=== PATIENT | female | born 1945 | race Caucasian/White ===

== ENCOUNTER 2016-10-21 19:06 | Inpatient (IN) | payer OTHER ==
[~2016-10-21] VITALS: Ht 172.7 cm; Wt 90.7 kg
--- NOTE | ~2016-10-21 | EKG ---
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
--- NOTE | ~2016-10-21 | HC ---
[facility] [place] [address] CONSULTATION Name: FRANKIE WALLACE Room #: 442-P ADM IN M.R.#: [id number] Admission: 10/21/16 Attend Phys: Carlo Varghese Discharge: Date of : 45 Report #: [id number] THIS REPORT FOR: //name// CC: Carlo Varghese Frankie Rell Desirmen HISTORY OF PRESENT ILLNESS: The patient is a 71-year-old female known to myself who was admitted yesterday afternoon after she presented to [facility], became what they felt was inebriated and called the , she was dysarthric having difficulty speaking and have left facial droop, associated with some headache. stated it was left facial droop. She has a history of some TIAs in the past. Her coronary status has been stable. She has a drug-eluting stent to her PDA placed in 2002 and also a stent to her circ OM. She has been stable from that perspective. We had a nuclear stress test done in January of last year, which showed no ischemia, preserved LV function. She has been compliant with her medications, which have been aspirin, Bystolic 5, glyburide 5, ibuprofen, Lantus, Livalo 4, metformin 1000, Onglyza 2.5, quinapril 40, Synthroid and Welchol. PAST MEDICAL HISTORY: Positive for coronary artery disease, appendectomy, , hysterectomy, hypertension, hypercholesterolemia, diabetes, venous insufficiency. Dr. Faria performed the venous ablation and also had of the right posterior calf. SOCIAL HISTORY: , some caffeine and alcohol, rare alcohol, caffeine daily, no tobacco. Three children. She is , retired. FAMILY HISTORY: Did have a sibling that had of heart failure at 54. ALLERGIES: No known drug allergies. LABORATORY DATA: Sodium 141, potassium 4.0, creatinine 1.0. Troponin is negative. Cholesterol total 111, triglycerides 177, LDL 44, HDL 32. H and H 14 and 42, white cell count 9.5. Platelets 333. CT of the head done yesterday shows underlying atrophy white matter ischemic changes without any hemorrhage or infarct, but (now has developed worst headache of her life). PHYSICAL EXAMINATION: GENERAL: She is nauseated with complaining of intense left-sided head pain. VITAL SIGNS: Blood pressure 120/60, pulse 70s. HEENT: Eyes reveal xanthelasmas. Pharynx is clear. She does have some photophobia. NECK: Shows preserved upstrokes without JVD or bruits. LUNGS: Clear. CARDIOVASCULAR: Regular rate and rhythm, S1, S2. ABDOMEN: Soft. No HSM or abdominal bruit. [facility] [address] [place] [address] CONSULTATION Name: FRANKIE WALLACE Room #: 442-P ADM IN M.R.#: [id number] Admission: 10/21/16 Attend Phys: Carlo Varghese Discharge: Date of : 45 Report #: [id number] EXTREMITIES: Reveal trace edema, mild venous stasis changes. NEUROLOGIC: Nonfocal. SKIN: Warm and dry without xanthoma or ulcer. MUSCULOSKELETAL: No gross joint deformity, some valgus deformity of the knees. ASSESSMENT: 1. Cerebrovascular, TIA with resolved dysarthria and left facial droop. 2. Severe headache which is recurrent (worst headache of her life). 3. Coronary artery disease with prior coronary stents as stated above. 4. Hypertension. 5. Hypercholesterolemia. 6. Diabetes. RECOMMENDATIONS AND PLAN: MRI apparently has been delayed here this morning. Neurology has seen, EKG is okay. EKG shows nonspecific changes. Neurology has seen, but now she has developed worst headache of her life, will proceed for stat noncontrast CT of her head to repeat this looking for potential for a bleed here and then obviously MRI to follow. Cardiovascular status appears to be stable and is hemodynamically, I will obtain an echocardiogram Doppler, but this is not, obviously there is always a remote chance of this could have been atrial fibrillation and a potential thrombotic event here, but currently is in sinus rhythm with a bundle branch block, we have not seen any evidence of atrial fibrillation on the monitor. We will hold on antiplatelet, anticoagulation until we were able to rule out that there is not an intracranial bleed. We will follow with you. Thank you for asking me to assist care of this patient. By: 0932 1210 Dominic Garza MD, FACC /nt
--- NOTE | ~2016-10-21 | H ---
[facility] [place] [address] HISTORY AND PHYSICAL Name: FRANKIE WALLACE Room #: 442-P ADM IN M.R.#: [id number] Admission: 10/21/16 Attend Phys: Alvaro Steiner MD Discharge: Date of : 45 Report #: [id number] THIS REPORT FOR: //name// CC: Alvaro Harris ATTENDING PHYSICIAN: Dr. Steiner. PRIMARY CARE PHYSICIAN: Dr. Frankie Zacarias. CHIEF COMPLAINT: Right-sided facial droop with dysarthria and confusion. HISTORY OF PRESENT ILLNESS: The patient is a 71-year-old female with a history of TIAs. She was shopping at [employer] and had sudden onset of difficulty speaking. She was trying to check out and when she went to talk to the [facility], she said the words in her head, but they came out completely different, she was also noted to have prior blood right-sided facial droop. She was given some aspirin and her was called and he brought her straight into the ER about 17 minutes after this onset of symptoms. She also noticed some problems with her right hand trying to grasp things and said it was weak. She also felt dizzy. She had an odd sensation in her neck and left side of her head, said there was numbness and tingling sensation that started in her neck went up into the left side of her face, but there was also some pain behind her left eye. She did have some nausea with this. She has had prior TIAs twice in which she also had some right hand weakness and speech problems, her symptoms completely resolved in the ER, therefore she was not deemed a candidate for TPA. She continues to be neurologically intact and has not had any recurrence of the symptoms since. She denied any associated chest pain with this. PAST MEDICAL HISTORY: Psoriasis, TIAs, diabetes, hypertension, coronary artery disease, hypothyroidism. PAST SURGICAL HISTORY: , multiple D and C, hysterectomy, appendectomy, foot surgery, coronary stent x 2, cholecystectomy, and a knee meniscus surgery. ALLERGIES: MORPHINE CAUSES NAUSEA AND VOMITING. HOME MEDICATIONS: Nebivolol 10 mg daily, quinapril 40 mg daily, aspirin 325 mg daily, metformin 1000 mg in the morning and 1500 mg at night, Onglyza 5 mg daily and Lantus insulin 34-36 units at bedtime, glyburide 5 mg daily and levothyroxine 75 mcg daily. SOCIAL HISTORY: The patient lives at home with her spouse and her son, denies any tobacco, alcohol or drug use. She ambulates independently. FAMILY HISTORY: Negative for any strokes. [address] [address] HISTORY AND PHYSICAL Name: FRANKIE WALLACE Room #: 442-P [facility] IN M.R.#: [id number] Admission: 10/21/16 Attend Phys: Alvaro Steiner MD Discharge: Date of : 45 Report #: [id number] REVIEW OF SYSTEMS: Twelve point review of systems was reviewed with the patient, otherwise negative unless stated in the HPI. PHYSICAL EXAMINATION: GENERAL: The patient is an alert female in no acute distress. VITAL SIGNS: Temperature is 35.9, heart rate , respirations 16, blood pressure is 185/99, oxygen is 98% on room air. HEENT: She does have a cross eyes, but EOMs are intact and pupils are equal and reactive, sclerae are nonicteric. Oral mucosa is pink and moist. NECK: Supple, no JVD noted. CARDIOVASCULAR: Normal S1, S2. No murmurs, rubs or gallops. RESPIRATORY: Breath sounds are clear bilaterally, diminished in both bases. Breathing is nonlabored. ABDOMEN: Obese, soft, nontender, nondistended with positive bowel sounds. VASCULAR: 1+ bilateral ankle edema. Pedal pulses are 2+. No calf tenderness. NEUROLOGIC: The patient is alert and oriented x 3. Speech is clear. No facial asymmetry. She is moving all extremities equally, muscle strength is 5/5 in all 4 extremities. LABORATORY DATA AND DIAGNOSTIC: WBC is 9.5, hemoglobin 14.4, platelets 333. INR 1.0. Sodium 141, potassium 4.0, BUN 19, creatinine 1.0. Glucose is 98. LFTs are within normal limits. Troponins negative. Alcohol level is less than 10. CT of the head without contrast showed atrophy and mild white matter ischemic changes without hemorrhage or other acute infarct. CT angio of the head and neck showed no focal stenosis or vessel cut off. No aneurysm seen and was apparently prominent developmental venous anomaly as an incidental finding in the right cerebral hemisphere adjacent to the first ventricle. There is no intracranial hemorrhage or perfusion abnormality seen and on the neck there is common carotid arteries are tortuous but patent with mild plaquing involving the left carotid bulb. There is no dissection or stenosis in the internal carotid arteries. ASSESSMENT AND PLAN: 1. Transient ischemic attack versus cerebrovascular accident, her initial symptoms have resolved. Neurology was consulted for further recommendations and did recommend an MRI and that echocardiogram today. Continue aspirin daily. 2. Diabetes type 2. Blood sugars are stable, continue home insulin regimen and oral hypoglycemics, we do need to hold metformin because of the CTA, add sliding scale insulin. 3. Hypertension. Blood pressure is elevated. We will hold her quinapril and Bystolic and offer permissive hypertension until her MRI is back. 4. History of heart disease. Troponin is negative. EKG shows no ischemic changes. She does have chronic left bundle branch block. 5. Hypothyroidism. Check TSH level. Continue Synthroid. 6. Deep venous thrombosis prophylaxis, place sequential compression devices. [facility] [address] [place] [address] HISTORY AND PHYSICAL Name: FRANKIE WALLACE Room #: 442-P ADM IN M.R.#: [id number] Admission: 10/21/16 Attend Phys: Alvaro Steiner MD Discharge: Date of : 45 Report #: [id number] We will continue to follow the patient closely throughout the hospitalization and make changes based on clinical status. By: 0553 0715 MARYELLEN Adam /misbah
[~2016-10-21 19:06] MED LIST: ACCUPRIL PO; ACTOS 30 MG TAB30 M1 PO; ACTOS PO; ASPIRIN325 PO; BYSTOLIC10 MG PO; GLUCOPHAGE1000 MG PO; GLYBURIDE 5 MG T5 MG PO; IBUPROFEN200 M2 PO; LIVALO2 MG PO; LOVASTAT40 PO; METFORMIN PO; SYNTHROID25 MCG PO; VALIUM2 MG PO
[2016-10-21 19:09] VITALS: BP 185/99
[2016-10-21] MEDS ORDERED: HYDROCHLOROTHIA25 M2 PO (19:20)
[2016-10-21] MEDS ORDERED: LEVOTHYROXIN0.075 MG PO (19:20)
[2016-10-21] MEDS ORDERED: QUINAPRIL HCL40 MG PO (19:21)
[2016-10-21] MEDS ORDERED: LANTUS SOL100 UNIT/1 SQ (19:21)
[2016-10-21] MEDS ORDERED: METFORMIN HCL1000 MG PO (19:21)
[2016-10-21] MEDS ORDERED: ONGLYZA5 MG PO (19:22)
[2016-10-21 19:30] LABS: ABSOLUTE NEUTROPHILS 5.8 thou/uL (1.4-8.2); BASOPHILS 0.7 % (0.0-2.0); EOSINOPHILS 3.7 % (0.0-3.0); HEMATOCRIT 42.9 % (37.0-47.0); HEMOGLOBIN 14.4 gm/dL (12.0-15.0); LYMPHOCYTES 26.6 % (24.0-44.0); MCH 29.3 pg (26.0-34.0); MCHC 33.6 g/dL (28.0-37.0); MCV 87.1 fL (80.0-100.0); MONOCYTES 8.5 % (1.0-8.0); PLATELET COUNT 333 thou/uL (150-400); POLYS 60.5 % (36.0-66.0); RBC 4.93 mil/uL (4.20-5.00); RDW 12.9 % (10.5-14.5); WBC 9.5 thou/uL (4.0-11.0)
[2016-10-21 19:31] LABS: MANUAL DIFF NO
[2016-10-21 19:36] LABS: POC CA IONIZED 4.6 mg/dL (4.5-5.3); POC CREATININE 0.8 mg/dL (0.6-1.3); POC HEMOGLOBIN 14.6 g/dL (12.0-15.0); POC POTASSIUM 3.9 mmol/L (3.5-5.1)
[2016-10-21 19:42] LABS: ANION GAP 12 mmol/L (7-16); BUN 19 mg/dL (7-18); CALCIUM 9.5 mg/dL (8.5-10.1); CHLORIDE 103 mmol/L (98-107); CO2 26 mmol/L (21-32); GLUCOSE 98 mg/dL (74-106); SODIUM 141 mmol/L (136-145)
[2016-10-21 19:47] LABS: ALBUMIN 4.1 g/dL (3.4-5.0); ALKALINE PHOSPHATASE 77 U/L (46-116); SGOT 26 U/L (15-37); SGPT 33 U/L (30-65); TOTAL BILIRUBIN 0.4 mg/dL (<0.1-1.0); TOTAL PROTEIN 7.7 g/dL (6.4-8.2); TROPONIN-I < 0.04 ng/mL (<0.04-0.07)
[2016-10-21 19:49] LABS: APTT 25.2 Seconds (24.5-32.8); PROTIME 10.3 Seconds (9.3-11.4)
[2016-10-21 21:28] VITALS: BP 155/72
[2016-10-21 21:44] VITALS: BP 144/80
[2016-10-21] MEDS ORDERED: GLYBURIDE 5 MG T5 M1 PO (22:11)
[2016-10-21 23:29] VITALS: BP 146/73
[2016-10-22 04:37] VITALS: BP 100/51
[2016-10-22 08:00] VITALS: BP 116/59
[2016-10-22 08:25] LABS: CHOLESTEROL 111 mg/dL (<200); HDL CHOLESTEROL 32 mg/dL (>40); LDL CHOLESTEROL 44 mg/dL (<100); TC:HDL 3.5 Ratio (Not establshd); TRIGLYCERIDE 177 mg/dL (<150); VLDL 35 mg/dL (<40)
[2016-10-22 12:00] VITALS: BP 161/72
[2016-10-22 16:00] VITALS: BP 134/55
[2016-10-22 19:50] VITALS: BP 123/49
[2016-10-22 20:21] VITALS: BP 123/49
[2016-10-23 03:45] VITALS: BP 138/70
[2016-10-23 08:00] VITALS: BP 124/59; BP 138/70
[2016-10-23 12:00] VITALS: BP 130/59
[2016-10-23] MEDS ORDERED: CLOPIDOGREL75 MG PO (12:26)
[2016-10-23 12:39] VITALS: BP 130/59
== END 2016-10-23 14:50 | disposition short-term general hospital (02) | DRG 69 ==
LOC: ER 19:06 → EROBS 20:39 → 4S 20:39
PROVIDERS: Emergency Medicine; Nurse Practitioner Acute Care
DX: G45.9 Transient cerebral ischemic attack, unspecified (principal); I10 Essential (primary) hypertension; E78.00 Pure hypercholesterolemia, unspecified; E11.9 Type 2 diabetes mellitus without complications; I25.10 Atherosclerotic heart disease of native coronary artery without angina pectoris; E78.5 Hyperlipidemia, unspecified; I44.7 Left bundle-branch block, unspecified; F40.240 Claustrophobia; E03.9 Hypothyroidism, unspecified; R51 Headache; E66.9 Obesity, unspecified; Z68.30 Body mass index [BMI] 30.0-30.9, adult; Z79.84 Long term (current) use of oral hypoglycemic drugs; Z79.4 Long term (current) use of insulin; Z79.899 Other long term (current) drug therapy; Z90.49 Acquired absence of other specified parts of digestive tract; Z90.710 Acquired absence of both cervix and uterus; Z95.5 Presence of coronary angioplasty implant and graft; Z82.49 Family history of ischemic heart disease and other diseases of the circulatory system
CPT/HCPCS: 10100

== ENCOUNTER 2016-10-27 12:36 | Emergency (ER) | payer OTHER ==
[~2016-10-27] VITALS: Ht 175.3 cm; Wt 124.7 kg
--- NOTE | ~2016-10-27 | EKG ---
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
[~2016-10-27 12:36] MED LIST changes: +CLOPIDOGREL75 MG PO; +GLYBURIDE 5 MG T5 M1 PO; +HYDROCHLOROTHIA25 M2 PO; +LANTUS SOL100 UNIT/1 SQ; +LEVOTHYROXIN0.075 MG PO; +METFORMIN HCL1000 MG PO; +ONGLYZA5 MG PO; +QUINAPRIL HCL40 MG PO
[2016-10-27 13:06] LABS: ABSOLUTE NEUTROPHILS 9.8 thou/uL (1.4-8.2); BASOPHILS 0.6 % (0.0-2.0); EOSINOPHILS 1.8 % (0.0-3.0); HEMATOCRIT 39.1 % (37.0-47.0); HEMOGLOBIN 13.1 gm/dL (12.0-15.0); LYMPHOCYTES 11.8 % (24.0-44.0); MCH 29.1 pg (26.0-34.0); MCHC 33.5 g/dL (28.0-37.0); MCV 86.8 fL (80.0-100.0); MONOCYTES 7.6 % (1.0-8.0); PLATELET COUNT 321 thou/uL (150-400); POLYS 78.2 % (36.0-66.0); RBC 4.51 mil/uL (4.20-5.00); RDW 12.7 % (10.5-14.5); WBC 12.6 thou/uL (4.0-11.0)
[2016-10-27 13:07] LABS: MANUAL DIFF NO
[2016-10-27 13:13] LABS: ANION GAP 11 mmol/L (7-16); BUN 15 mg/dL (7-18); CALCIUM 8.6 mg/dL (8.5-10.1); CHLORIDE 102 mmol/L (98-107); CO2 24 mmol/L (21-32); CREATININE 1.1 mg/dL (0.6-1.0); GLUCOSE 164 mg/dL (74-106); POTASSIUM 3.8 mmol/L (3.5-5.1); SODIUM 137 mmol/L (136-145)
[2016-10-27 13:20] LABS: ALBUMIN 3.5 g/dL (3.4-5.0); ALKALINE PHOSPHATASE 66 U/L (46-116); DIRECT BILIRUBIN < 0.1 mg/dL (<0.1-0.3); SGOT 22 U/L (15-37); SGPT 27 U/L (30-65); TOTAL BILIRUBIN 0.3 mg/dL (<0.1-1.0); TROPONIN-I < 0.04 ng/mL (<0.04-0.07)
[2016-10-27 13:59] LABS: URINE BLOOD NEGATIVE (Negative); URINE COLOR YELLOW; URINE GLUCOSE-RANDOM* NEGATIVE (Negative); URINE KETONES NEGATIVE (Negative); URINE LEUKOCYTES-REFLEX 2+ (Negative); URINE PROTEIN (DIPSTICK) TRACE (Negative); URINE SPECIFIC GRAVITY >= 1.030 (1.003-1.035); URINE UROBILINOGEN 0.2 E.U./dl (0.2-1.0)
[2016-10-27 14:01] LABS: URINE BILIRUBIN NEGATIVE (Negative)
[2016-10-27 14:06] LABS: SQUAMOUS 0-3 Few /LPF (0-3)
[2016-10-27 14:07] LABS: CASTS None Seen /LPF (None Seen); CRYSTALS None Seen /LPF (None Seen); URINE RBC None Seen /HPF (0-2)
[2016-10-27] MEDS ORDERED: BACTRIM DS TAB1 EACH PO (14:32)
== END 2016-10-27 15:03 | disposition home or self-care (01) ==
LOC: ER 12:36
PROVIDERS: Emergency Medicine
DX: I95.9 Hypotension, unspecified (principal); N39.0 Urinary tract infection, site not specified; E11.9 Type 2 diabetes mellitus without complications; Z98.890 Other specified postprocedural states; Z90.710 Acquired absence of both cervix and uterus; Z95.5 Presence of coronary angioplasty implant and graft; Z86.73 Personal history of transient ischemic attack (TIA), and cerebral infarction without residual deficits; Z87.891 Personal history of nicotine dependence; Z79.4 Long term (current) use of insulin

== ENCOUNTER 2017-02-22 12:49 | Inpatient (IN) | payer OTHER ==
[~2017-02-22] VITALS: Ht 175.3 cm; Wt 95.7 kg
--- NOTE | ~2017-02-22 | HC ---
[facility] [place] [address] CONSULTATION Name: WALLACEFRANKIE HADDAD Room #: 303-P ADM IN M.R.#: [id number] Admission: 02/22/17 Attend Phys: Donnie Robledo DO Discharge: Date of : 45 Report #: [id number] THIS REPORT FOR: //name// CC: Donnie Zacarias REASON FOR CONSULTATION: I was asked to evaluate concerning right diabetic foot infection. HISTORY OF PRESENT ILLNESS: The patient is a 71-year-old underlying with diabetes and peripheral neuropathy. Hospitalized with increased right foot pain associated with fever and chills. She noticed some increased pain in the plantar aspect of her first metatarsal head associated with a callus. This was debrided last week, subsequently developed ongoing symptoms about 48 hours. Initially, she was placed on cephalexin and then switched the doxycycline without benefit. She continues to have pain. Her fever has improved. She was on IV antibiotic therapy at this point in time. ALLERGIES: CLOPIDOGREL. MEDICATIONS: As noted on her MAR including vancomycin and Zosyn. PAST MEDICAL HISTORY: Hammertoe deformity to the right first toe, status post surgical intervention and pin placement. This has been revised several times. She does have residual pins in place. TIA, urinary tract infection, previous Staph aureus, and infection of the right foot. FAMILY HISTORY: Noncontributory. SOCIAL HISTORY: Nonsmoker, no significant alcohol intake. REVIEW OF SYSTEMS: Denies any cough, sputum, nausea, vomiting, diarrhea, dysuria, or frequency. PHYSICAL EXAMINATION: VITAL SIGNS: Afebrile and hemodynamically stable. GENERAL: She is alert and cooperative. No acute distress. Moderately obese. HEENT: Unremarkable. NECK: Supple. LUNGS: Clear. HEART: Regular. ABDOMEN: Soft and nontender. Pulses in the right lower extremity, 2+ in the femoral, 3+ in the popliteal, 2+ in the dorsalis pedis and 1+ posterior tib. She had a callus with skin break over the right first metatarsal head. Surrounding erythema, which extended mostly up the medial and dorsal surface of her first metatarsal head region. Erythema did extend up to the proximal leg. Exquisitely tender over the first metatarsal head. She had well-healed [address] [address] CONSULTATION Name: FRANKIE WALLACE Room #: 303-P ADM IN M.R.#: [id number] Admission: 02/22/17 Attend Phys: Donnie Robledo DO Discharge: Date of : 45 Report #: [id number] incisions to the dorsum of her first toe. Decreased sensation in her toes. LABORATORY STUDIES: Sodium 142, potassium 3.2, bicarbonate 27, and creatinine 1. Hemoglobin 11, white count 7.8, and platelet count 270,000. Blood culture is negative to date. CRP 83. X-ray of the foot, first metatarsal postop changes with a fixation screw in place. X-ray showed no lucency around the fixation screw. IMPRESSION: A 71-year-old with diabetic foot infection on the right focused over her first metatarsal head region. Need to evaluate for soft tissue fluid collection or subtle osteomyelitis that would require surgical intervention. X-ray shows that the screw seems to be well seated. We will plan to continue IV antibiotic therapy pending cultures. <ELECTRONICALLY SIGNED> By: Elia Garcia MD 02/23/17 1143 1037 1105 Elia Garcia MD /nt
--- NOTE | ~2017-02-22 | HC ---
[facility] [place] [address] CONSULTATION Name: WALLACEFRANKIE HADDAD Room #: 303-P ADM IN M.R.#: [id number] Admission: 02/22/17 Attend Phys: Donnie Robledo DO Discharge: Date of : 45 Report #: [id number] THIS REPORT FOR: //name// CC: Donnie Zacarias HISTORY OF PRESENT ILLNESS: The patient is a pleasant 71-year-old female who was admitted to [facility] to the Emergency Department yesterday with complaints of right foot pain and swelling. The patient reports that she saw her doctor on 02/14 for right foot pain and swelling. At that point, he started her on Keflex. She was on this for about a week, then on 02/21 was seen in an urgent care office where she was also started on doxycycline. She presented to the Emergency Department at [facility] yesterday with complaints of worsening pain, swelling and fever. The patient has a history of osteomyelitis in the right foot that began about 5 years ago. She had another infection episode approximately 3 years ago. The patient also has a history of a bunionectomy x 2 on the right foot with the most recent surgery being approximately 5 years ago. The patient is an insulin-dependent diabetic who lives with her and normally ambulates without assistance. PAST MEDICAL HISTORY: Significant for diabetes, hypothyroid, history of osteomyelitis of the right foot. PAST SURGICAL HISTORY: Significant for bunionectomy x 2 on the right foot. MEDICATIONS: Includes Lantus, metformin, levothyroxine, saxagliptin hydrochloride, glyburide, nebivolol, prasugrel. ALLERGIES: CLOPIDOGREL CAUSES A RASH. PHYSICAL EXAMINATION: VITAL SIGNS: Temperature 36.7 degrees Celsius, blood pressure 148/69, pulse rate 80 BPM, respiratory rate 17. GENERAL: The patient is a well-developed, well-nourished female in no acute distress. Her daughter is at a bedside today. EXTREMITIES: Right lower extremity, mild erythema noted, most prominently in the mid foot and fading up into the lower leg. Edema noted throughout the foot with pitting edema noted in the lower leg. Sensation is diminished bilaterally in the feet; however, the patient has exquisite tenderness to palpation of the medial aspect of the mid and forefoot. There is a second callus on the medial plantar aspect over the MTP. IMAGING: Three views of the right foot performed on 02/22/2017 show degenerative and surgical change. Soft tissue swelling without distinct bone destruction. MRI is more accurate for the ____ osteomyelitis and marrow edema. IMPRESSION: [address] [address] CONSULTATION Name: FRANKIE WALLACE Room #: 303-P [facility] IN M.R.#: [id number] Admission: 02/22/17 Attend Phys: Donnie Robledo DO Discharge: Date of : 45 Report #: [id number] 1. Right foot cellulitis, possible osteomyelitis. 2. Diabetes, insulin-dependent. PLAN: Discussed the plan with the patient and her daughter who was at her bedside today. We will obtain an MRI for further evaluation of possible osteomyelitis of the right foot. Pending the MRI results, we discussed that if this does show an osteomyelitis, we may need to discuss options including amputation. This is not the patient's first bout of osteomyelitis in this foot and we discussed that these do not always resolve with antibiotic treatment alone. We will continue IV antibiotics per Infectious Disease and medicine team and await results of the MRI. <ELECTRONICALLY SIGNED> By: STACY Wiggins 02/25/17 1544 1623 1847 STACY Wiggins /nt
--- NOTE | ~2017-02-22 | O ---
[facility] [place] [address] OPERATIVE REPORT Name: FRANKIE WALLACE Room #: 303-P ADM IN M.R.#: [id number] Admission: 02/22/17 Attend Phys: Donnie Robledo DO Discharge: Date of : 45 Report #: [id number] THIS REPORT FOR: //name// CC: Donnie Jose Rell DATE OF SERVICE: 02/26/2017 PREOPERATIVE DIAGNOSIS: Right forefoot infection. POSTOPERATIVE DIAGNOSIS: Right forefoot infection. PROCEDURE: Incision and drainage, right forefoot infection/abscess. SURGEON: Neno Jaime MD INDICATIONS: This is a 71-year-old female who has had problems with heavy callus over the plantar aspect of the right forefoot and has had infections in the past. Recently, her fire observer was trying to debride the callus and noted some increased swelling. He tried to aspirate the area without success. Subsequently, the foot became more red and inflamed. Clinical findings and MRI study suggests an area of fluid collection deep to the callus over the plantar aspect of the forefoot overlying the sesamoid. This seems most consistent with a local abscess formation. We have elected to go ahead with surgical debridement. DESCRIPTION OF PROCEDURE: The patient was taken to the operating room where she is placed under brief general anesthetic. The right lower extremity was meticulously prepped and draped. An Esmarch bandage was used to exsanguinate the right foot and left at the mid leg as a gentle tourniquet. A longitudinal skin incision was made over the medial border of the foot just plantar to the first MP joint. There is a very heavy callus beneath this and the incision was positioned so that I could debride the area deep to the callus and superficial to the sesamoid bones. The incision was extended through subcutaneous tissues and a small fluid filled space was entered. This is cloudy serous fluid. There is no obvious purulence but I suspect this is infected. Specimen was sent for culture. About 2 mL of fluid was removed. This pocket was then aggressively irrigated with antibiotic solution using about 1000 mL. The area was gently probed to make sure there were no septations or pockets, which might further debris and infection. Once the area had been thoroughly irrigated and debrided, a few inches of iodoform quarter-inch range gauze packing were gently tucked into the wound to promote further drainage. A soft dressing was then [address] [address] OPERATIVE REPORT Name: FRANKIE WALLACE Room #: 303-P [facility] IN .R.#: [id number] Admission: 02/22/17 Attend Phys: Donnie Robledo DO Discharge: Date of : 45 Report #: [id number] applied. The patient was awakened and returned to the recovery room in good condition. <ELECTRONICALLY SIGNED> By: Neno Jaime MD 02/27/17 1147 1415 1454 Neno Jaime MD /misbah
--- NOTE | ~2017-02-22 | EKG ---
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 : 1945 Requested By: Elia Garcia Order Number: [id number] MD: Trent Miller Measurements Intervals [place] Rate: 71 P: 39 [place]: 185 QRS: 84 QRSD: 141 T: 244 QT: 436 QTc: 474 Interpretive Statements Sinus rhythm LVH with secondary repolarization abnormality Anterior Q waves, possibly due to LVH Compared to ECG 10/27/2016 12:42:04 Left ventricular hypertrophy now present Early repolarization now present Q waves now present Left bundle-branch block no longer present Electronically Signed On 03-01-2017 22:10:27 CDT by Trent Miller [email or web address] <ELECTRONICALLY SIGNED> By: Trent Miller MD 03/01/17 2210 1239 1239 Trent Miller MD /EPI
[~2017-02-22 12:49] MED LIST changes: +BACTRIM DS TAB1 EACH PO
[2017-02-22 13:59] VITALS: BP 147/66
[2017-02-22] MEDS ORDERED: EFFIENT10 MG PO (14:05)
[2017-02-22] MEDS ORDERED: DOXYCYCLINE 10100 MG PO (14:06)
[2017-02-22 15:00] LABS: ABSOLUTE NEUTROPHILS 6.9 thou/uL (1.4-8.2); BASOPHILS 0.8 % (0.0-2.0); EOSINOPHILS 3.4 % (0.0-3.0); HEMATOCRIT 36.4 % (37.0-47.0); HEMOGLOBIN 12.2 gm/dL (12.0-15.0); LYMPHOCYTES 16.8 % (24.0-44.0); MCHC 33.6 g/dL (28.0-37.0); MCV 89.2 fL (80.0-100.0); MONOCYTES 8.2 % (1.0-8.0); PLATELET COUNT 292 thou/uL (150-400); POLYS 70.8 % (36.0-66.0); RBC 4.08 mil/uL (4.20-5.00); RDW 13.5 % (10.5-14.5); WBC 9.8 thou/uL (4.0-11.0)
[2017-02-22 15:07] LABS: CALCIUM 8.6 mg/dL (8.5-10.1); MANUAL DIFF NO; POTASSIUM 3.7 mmol/L (3.5-5.1)
[2017-02-22 16:05] VITALS: BP 126/61
[2017-02-22 16:14] VITALS: BP 126/61
[2017-02-22 20:00] VITALS: BP 146/64
[2017-02-23] VITALS: BP 152/72
[2017-02-23 04:00] VITALS: BP 128/44
[2017-02-23 05:35] LABS: BASOPHILS 0.8 % (0.0-2.0); EOSINOPHILS 4.2 % (0.0-3.0); HEMATOCRIT 32.7 % (37.0-47.0); HEMOGLOBIN 11.1 gm/dL (12.0-15.0); LYMPHOCYTES 22.5 % (24.0-44.0); MCHC 33.9 g/dL (28.0-37.0); MCV 88.6 fL (80.0-100.0); MONOCYTES 8.9 % (1.0-8.0); PLATELET COUNT 270 thou/uL (150-400); POLYS 63.6 % (36.0-66.0); RBC 3.69 mil/uL (4.20-5.00); RDW 13.1 % (10.5-14.5); WBC 7.8 thou/uL (4.0-11.0)
[2017-02-23 05:44] LABS: MANUAL DIFF NO
[2017-02-23 05:47] LABS: CALCIUM 8.1 mg/dL (8.5-10.1); POTASSIUM 3.2 mmol/L (3.5-5.1)
[2017-02-23 08:00] VITALS: BP 126/59
[2017-02-23 16:00] VITALS: BP 148/69
[2017-02-23 19:45] VITALS: BP 158/71
[2017-02-24 00:37] LABS: ABSOLUTE NEUTROPHILS 4.3 thou/uL (1.4-8.2); BASOPHILS 1.2 % (0.0-2.0); EOSINOPHILS 4.5 % (0.0-3.0); HEMATOCRIT 34.4 % (37.0-47.0); HEMOGLOBIN 11.4 gm/dL (12.0-15.0); LYMPHOCYTES 26.1 % (24.0-44.0); MCH 29.9 pg (26.0-34.0); MCHC 33.3 g/dL (28.0-37.0); MCV 89.9 fL (80.0-100.0); MONOCYTES 9.2 % (1.0-8.0); PLATELET COUNT 320 thou/uL (150-400); RBC 3.83 mil/uL (4.20-5.00); RDW 12.9 % (10.5-14.5); WBC 7.4 thou/uL (4.0-11.0)
[2017-02-24 00:45] LABS: CALCIUM 8.4 mg/dL (8.5-10.1); MANUAL DIFF NO; POTASSIUM 3.9 mmol/L (3.5-5.1)
[2017-02-24 03:10] VITALS: BP 150/78
[2017-02-24 08:11] VITALS: BP 141/66
[2017-02-24 16:07] VITALS: BP 160/66
[2017-02-24 19:08] VITALS: BP 144/60
[2017-02-25 03:38] VITALS: BP 145/58
[2017-02-25 08:05] VITALS: BP 154/64
[2017-02-25 16:50] VITALS: BP 106/61
[2017-02-25 19:21] VITALS: BP 133/61
[2017-02-26 03:48] VITALS: BP 158/78
[2017-02-26 09:10] VITALS: BP 143/50
[2017-02-26 13:15] VITALS: BP 144/73
[2017-02-26 15:07] VITALS: BP 155/66
[2017-02-26 16:55] VITALS: BP 158/73
[2017-02-26 20:00] VITALS: BP 143/61
[2017-02-27] VITALS: BP 138/48
[2017-02-27 04:00] VITALS: BP 143/68
[2017-02-27 08:30] VITALS: BP 134/68
[2017-02-27] MEDS ORDERED: LINEZOLID600 MG PO (12:01)
[2017-02-27] MEDS ORDERED: CIPRO500 MG PO (12:01)
[2017-02-27 15:19] VITALS: BP 143/57
[2017-02-27 19:41] VITALS: BP 119/52
[2017-02-28 03:40] VITALS: BP 119/46
[2017-02-28 07:42] VITALS: BP 124/60
[2017-02-28] MEDS ORDERED: CIPRO500 MG PO (08:18)
[2017-02-28] MEDS ORDERED: LINEZOLID600 MG PO (08:18)
[2017-02-28] MEDS ORDERED: TRAMADOL 50 MG50 MG PO (08:19)
[2017-02-28 09:42] VITALS: BP 124/60
[2017-02-28] MEDS ORDERED: ZOFRAN ODT4 MG PO (10:35)
== END 2017-02-28 11:55 | disposition home or self-care (01) | DRG 501 ==
LOC: ER 12:49 → EROBS 15:49 → 3N 15:49 → EROBS 16:36 → 3N 18:46
PROVIDERS: Emergency Medicine; Family Medicine
PROC: 0J9Q0ZZ Drainage of Right Foot Subcutaneous Tissue and Fascia, Open Approach (ICD-10-PCS; principal; 2017-02-26)
DX: M71.171 Other infective bursitis, right ankle and foot (principal); L03.115 Cellulitis of right lower limb; L02.611 Cutaneous abscess of right foot; I10 Essential (primary) hypertension; E03.9 Hypothyroidism, unspecified; E11.9 Type 2 diabetes mellitus without complications; Z88.1 Allergy status to other antibiotic agents; Z88.5 Allergy status to narcotic agent; Z90.710 Acquired absence of both cervix and uterus; Z95.5 Presence of coronary angioplasty implant and graft; Z86.73 Personal history of transient ischemic attack (TIA), and cerebral infarction without residual deficits; Z79.4 Long term (current) use of insulin; Z88.8 Allergy status to other drugs, medicaments and biological substances; Z87.891 Personal history of nicotine dependence; Z87.440 Personal history of urinary (tract) infections
CPT/HCPCS: 10795; 50010; 50101; 50386; 57091; 62110; 62900; 70005

== ENCOUNTER 2017-06-16 11:24 | Emergency (ER) | payer OTHER ==
[~2017-06-16] VITALS: Ht 175.3 cm; Wt 90.7 kg
[~2017-06-16 11:24] MED LIST changes: +CIPRO500 MG PO; +DOXYCYCLINE 10100 MG PO; +EFFIENT10 MG PO; +LINEZOLID600 MG PO; +TRAMADOL 50 MG50 MG PO; +ZOFRAN ODT4 MG PO
[2017-06-16] MEDS ORDERED: HYDROCODONE-AP1 EAC6 PO (13:06)
== END 2017-06-16 15:13 | disposition home or self-care (01) ==
LOC: ER 11:24
DX: S52.502A Unspecified fracture of the lower end of left radius, initial encounter for closed fracture (principal); S82.002A Unspecified fracture of left patella, initial encounter for closed fracture; E11.9 Type 2 diabetes mellitus without complications; I10 Essential (primary) hypertension; Z98.890 Other specified postprocedural states; Z90.710 Acquired absence of both cervix and uterus; Z86.73 Personal history of transient ischemic attack (TIA), and cerebral infarction without residual deficits; Z88.5 Allergy status to narcotic agent; Z88.2 Allergy status to sulfonamides; Z79.4 Long term (current) use of insulin; W01.0XXA Fall on same level from slipping, tripping and stumbling without subsequent striking against object, initial encounter; Y93.89 Activity, other specified; Y92.89 Other specified places as the place of occurrence of the external cause; Y99.8 Other external cause status

== ENCOUNTER 2017-06-17 17:07 | Emergency (ER) | payer OTHER ==
[~2017-06-17] VITALS: Ht 175.3 cm; Wt 90.7 kg
[~2017-06-17 17:07] MED LIST changes: +HYDROCODONE-AP1 EAC6 PO
== END 2017-06-17 19:39 | disposition home or self-care (01) ==
LOC: ER 17:07
DX: Z47.89 Encounter for other orthopedic aftercare (principal); E11.9 Type 2 diabetes mellitus without complications; I10 Essential (primary) hypertension; Z86.73 Personal history of transient ischemic attack (TIA), and cerebral infarction without residual deficits; Z79.4 Long term (current) use of insulin; Z88.2 Allergy status to sulfonamides; Z88.5 Allergy status to narcotic agent; Z88.8 Allergy status to other drugs, medicaments and biological substances

== ENCOUNTER → 2018-10-26 | Outpatient (CLI) | payer OTHER | LOC: CAT 11:42 | DX: Z13.6 Encounter for screening for cardiovascular disorders (principal); E78.00 Pure hypercholesterolemia, unspecified; I25.10 Atherosclerotic heart disease of native coronary artery without angina pectoris ==

== ENCOUNTER → 2019-08-11 | Outpatient (CLI) | payer OTHER | LOC: SJCVC 14:30 | DX: I44.7 Left bundle-branch block, unspecified (principal); R94.31 Abnormal electrocardiogram [ECG] [EKG]; I25.10 Atherosclerotic heart disease of native coronary artery without angina pectoris; E78.00 Pure hypercholesterolemia, unspecified; E11.51 Type 2 diabetes mellitus with diabetic peripheral angiopathy without gangrene; G45.9 Transient cerebral ischemic attack, unspecified; I87.2 Venous insufficiency (chronic) (peripheral); I10 Essential (primary) hypertension; Z90.49 Acquired absence of other specified parts of digestive tract; Z79.4 Long term (current) use of insulin; Z90.710 Acquired absence of both cervix and uterus ==

== ENCOUNTER → 2019-09-20 | Outpatient (CLI) | payer OTHER | LOC: SJCVCIMAG 08:21 | DX: I08.3 Combined rheumatic disorders of mitral, aortic and tricuspid valves (principal); I27.20 Pulmonary hypertension, unspecified; I44.7 Left bundle-branch block, unspecified; I25.10 Atherosclerotic heart disease of native coronary artery without angina pectoris; I10 Essential (primary) hypertension; R94.39 Abnormal result of other cardiovascular function study; Z98.61 Coronary angioplasty status; Z79.899 Other long term (current) drug therapy; Z88.8 Allergy status to other drugs, medicaments and biological substances ==

== ENCOUNTER → 2019-12-20 | Outpatient (CLI) | payer OTHER | LOC: SJCVCIMAG 06:58 | PROVIDERS: ATTEND Internal Medicine Cardiovascular Disease | DX: I87.2 Venous insufficiency (chronic) (peripheral) (principal); M79.671 Pain in right foot; I10 Essential (primary) hypertension; I25.10 Atherosclerotic heart disease of native coronary artery without angina pectoris; E78.00 Pure hypercholesterolemia, unspecified; E11.9 Type 2 diabetes mellitus without complications; Z79.4 Long term (current) use of insulin ==

== ENCOUNTER → 2019-12-22 | Outpatient (CLI) | payer OTHER | LOC: SJCVCIMAG 11:22 | DX: I70.203 Unspecified atherosclerosis of native arteries of extremities, bilateral legs (principal) ==

== ENCOUNTER → 2020-05-02 | Outpatient (CLI) | payer OTHER | LOC: SJCVC 14:05 | PROVIDERS: ATTEND Internal Medicine Cardiovascular Disease | DX: R94.31 Abnormal electrocardiogram [ECG] [EKG] (principal); I44.7 Left bundle-branch block, unspecified; I25.10 Atherosclerotic heart disease of native coronary artery without angina pectoris; I73.9 Peripheral vascular disease, unspecified; I10 Essential (primary) hypertension; E78.00 Pure hypercholesterolemia, unspecified; I87.2 Venous insufficiency (chronic) (peripheral); E11.9 Type 2 diabetes mellitus without complications; Z79.4 Long term (current) use of insulin; Z79.899 Other long term (current) drug therapy; Z86.73 Personal history of transient ischemic attack (TIA), and cerebral infarction without residual deficits ==

== ENCOUNTER → 2020-10-01 | Outpatient (CLI) | payer OTHER | LOC: HYPER 10:29 | PROVIDERS: ATTEND Emergency Medicine | DX: E11.621 Type 2 diabetes mellitus with foot ulcer (principal); I70.235 Atherosclerosis of native arteries of right leg with ulceration of other part of foot; L97.512 Non-pressure chronic ulcer of other part of right foot with fat layer exposed; I70.202 Unspecified atherosclerosis of native arteries of extremities, left leg; L84 Corns and callosities; L29.8 Other pruritus; R21 Rash and other nonspecific skin eruption; E11.51 Type 2 diabetes mellitus with diabetic peripheral angiopathy without gangrene; E11.22 Type 2 diabetes mellitus with diabetic chronic kidney disease; I12.9 Hypertensive chronic kidney disease with stage 1 through stage 4 chronic kidney disease, or unspecified chronic kidney disease; N18.9 Chronic kidney disease, unspecified; E11.40 Type 2 diabetes mellitus with diabetic neuropathy, unspecified; E78.00 Pure hypercholesterolemia, unspecified; I25.10 Atherosclerotic heart disease of native coronary artery without angina pectoris; I87.2 Venous insufficiency (chronic) (peripheral); I67.89 Other cerebrovascular disease; K21.9 Gastro-esophageal reflux disease without esophagitis; F41.9 Anxiety disorder, unspecified; Z79.4 Long term (current) use of insulin; Z90.49 Acquired absence of other specified parts of digestive tract; Z95.5 Presence of coronary angioplasty implant and graft; Z90.710 Acquired absence of both cervix and uterus ==

== ENCOUNTER → 2020-10-08 | Outpatient (CLI) | payer OTHER | LOC: HYPER 11:13 | PROVIDERS: ATTEND Emergency Medicine Emergency Medical Services | DX: E11.621 Type 2 diabetes mellitus with foot ulcer (principal); I70.235 Atherosclerosis of native arteries of right leg with ulceration of other part of foot; L97.512 Non-pressure chronic ulcer of other part of right foot with fat layer exposed; I70.202 Unspecified atherosclerosis of native arteries of extremities, left leg; L84 Corns and callosities; L29.8 Other pruritus; R21 Rash and other nonspecific skin eruption; E11.51 Type 2 diabetes mellitus with diabetic peripheral angiopathy without gangrene; E11.22 Type 2 diabetes mellitus with diabetic chronic kidney disease; I12.9 Hypertensive chronic kidney disease with stage 1 through stage 4 chronic kidney disease, or unspecified chronic kidney disease; N18.9 Chronic kidney disease, unspecified; E11.40 Type 2 diabetes mellitus with diabetic neuropathy, unspecified; E78.00 Pure hypercholesterolemia, unspecified; E66.9 Obesity, unspecified; I25.10 Atherosclerotic heart disease of native coronary artery without angina pectoris; I87.2 Venous insufficiency (chronic) (peripheral); I67.89 Other cerebrovascular disease; K21.9 Gastro-esophageal reflux disease without esophagitis; F41.9 Anxiety disorder, unspecified; Z79.4 Long term (current) use of insulin; Z90.49 Acquired absence of other specified parts of digestive tract; Z95.5 Presence of coronary angioplasty implant and graft; Z90.710 Acquired absence of both cervix and uterus; Z68.37 Body mass index [BMI] 37.0-37.9, adult ==

== ENCOUNTER → 2020-11-14 | Outpatient (CLI) | payer OTHER | LOC: SJCVCIMAG 07:51 | PROVIDERS: ATTEND Internal Medicine Cardiovascular Disease | DX: I65.23 Occlusion and stenosis of bilateral carotid arteries (principal); E04.1 Nontoxic single thyroid nodule; R94.31 Abnormal electrocardiogram [ECG] [EKG]; I44.7 Left bundle-branch block, unspecified; I25.10 Atherosclerotic heart disease of native coronary artery without angina pectoris; I10 Essential (primary) hypertension; E78.00 Pure hypercholesterolemia, unspecified; I87.2 Venous insufficiency (chronic) (peripheral); E11.51 Type 2 diabetes mellitus with diabetic peripheral angiopathy without gangrene; I73.9 Peripheral vascular disease, unspecified; Z90.49 Acquired absence of other specified parts of digestive tract; Z90.710 Acquired absence of both cervix and uterus; Z98.890 Other specified postprocedural states; Z88.8 Allergy status to other drugs, medicaments and biological substances; Z79.4 Long term (current) use of insulin; Z79.899 Other long term (current) drug therapy; Z82.49 Family history of ischemic heart disease and other diseases of the circulatory system ==

== ENCOUNTER → 2020-12-12 | Outpatient (CLI) | payer OTHER ==
[2020-12-12 10:35] LABS: INR 0.9; PROTIME 9.9 Seconds (9.3-11.4)
--- NOTE | 2020-12-21 13:50 | PATH ---
[facility] [place] [address] PATHOLOGY RPT PROCEDURE Name: FRANKIE WALLACE Room #: REG [facility].#: [id number] Admission: 12/12/20 Date of : 45 Discharge: Report #: [id number] Path Case #: [id number] Note LCA Accession Number: [id number] TESTS RESULT FLAG UNITS REF RANGE LAB Clinician Provided Cytology Information No. of containers..01 Other (Miscellaneous) Source: RIGHT THYROID DIAGNOSIS: RIGHT THYROID NEGATIVE FOR MALIGNANT EPITHELIAL CELLS. BETHESDA CATEGORY II. SPECIMEN CONSISTS OF ABUNDANT GROUPS OF FOLLICULAR CELLS, HEMOSIDERIN-LADEN MACROPHAGES, SCANT COLLOID AND BLOOD. THE PATTERN IS COMPATIBLE WITH ADENOMATOID NODULE. COLLOID IS PRESENT. RED BLOOD CELLS ARE PRESENT. THIS INTERPRETATION INCLUDES EVALUATION OF A CELL BLOCK. SCANT CELLULARITY. Comment: Specimen is scantly cellular with barely adequate follicular cells. 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 Pathologist ICD10: 02 E04.1 Signed out by: 02 Hazel Laurent MD, Pathologist NPI- [id number] Performed by: Lauren Urrutia, Wind Farm Designer ([facility]) Gross description: 08 18, CLEAR PINK, 2 F 2 AD /LCS 12/13/[address] [place] [address] FLAG LEGEND: L-Low Normal,H-High Normal,LL-Alert Low,HH-Alert High <-Panic Low,>-Panic High,A-Abnormal,AA-Critical Abnormal Performed at: 01 [facility] [address] [place] [address] Blaze Rivero MD, [address] [address] Hazel Laurent MD, Specimen Comment: A courtesy copy of this report has been sent to [phone], [address] [address] PATHOLOGY RPT PROCEDURE Name: FRANKIE WALLACE Room #: REG ELIZABETH Farrell#: [id number] Admission: 12/12/20 Date of : 45 Discharge: Report #: [id number] Path Case #: [id number] Specimen Comment: [id number] Specimen Comment: Report sent to / DR JUAREZ Specimen Comment: A duplicate report has been generated due to demographic updates. Performed at: [address], [place], [place] [id number] MD Blaze Rivero MD Phone: [phone]
== END | disposition home or self-care (01) ==
LOC: RAD 09:24 → LAB 09:26
PROVIDERS: ATTEND Otolaryngology Plastic Surgery within the Head & Neck
DX: E04.1 Nontoxic single thyroid nodule (principal); Z98.890 Other specified postprocedural states; Z79.899 Other long term (current) drug therapy; Z88.8 Allergy status to other drugs, medicaments and biological substances; Z88.2 Allergy status to sulfonamides; Z79.891 Long term (current) use of opiate analgesic

== ENCOUNTER → 2021-04-11 | Outpatient (CLI) | payer OTHER ==
[~2021-04-11] MED LIST changes: +BYSTOLIC 5 MG5 MG PO; +CLORAZEPATE D3.75 M1 PO; +EFFIENT5 MG PO; +JANUVIA100 MG PO; -LEVOTHYROXIN0.075 MG PO; +LEXAPRO5 MG PO; +LIVALO1 MG PO; +MAGNESIUM400 MG PO; +METFORMIN HCL500 MG PO; +NEURONTIN100 MG PO; +OMEPRAZOLE40 MG PO; +SYNTHROID75 MC1 PO; +WELCHOL 625 MG625 M1 PO
[2021-04-11 09:19] LABS: HEMOGLOBIN 12.5 gm/dL (12.0-15.0); MCH 30.1 pg (26.0-34.0); MCHC 32.8 g/dL (28.0-37.0); MCV 91.9 fL (80.0-100.0); RBC 4.14 mil/uL (4.20-5.00); RDW 13.2 % (10.5-14.5)
[2021-04-11 09:29] LABS: INR 0.94; PROTIME 10.3 Seconds (10.5-12.1)
[2021-04-11 09:35] LABS: ALBUMIN 3.4 g/dL (3.4-5.0); CREATININE 0.9 mg/dL (0.6-1.0); POTASSIUM 4.7 mmol/L (3.5-5.1)
[2021-04-11 09:49] LABS: URINE BILIRUBIN NEGATIVE (Negative); URINE BLOOD NEGATIVE (Negative); URINE CLARITY CLEAR; URINE COLOR YELLOW; URINE GLUCOSE-RANDOM* NEGATIVE (Negative); URINE KETONES TRACE (Negative); URINE NITRITE-REFLEX NEGATIVE (Negative); URINE PROTEIN (DIPSTICK) NEGATIVE (Negative); URINE UROBILINOGEN 0.2 E.U./dl (0.2-1.0)
[2021-04-11 09:50] LABS: URINE LEUKOCYTES-REFLEX 1+ (Negative)
[2021-04-11 10:31] LABS: SQUAMOUS 0-3 Few /LPF (0-3); URINE WBC-REFLEX 6-15 Few /HPF (0-5)
[2021-04-11 10:32] LABS: BACTERIA-REFLEX 1-9 Few /HPF (None Seen); CASTS None Seen /LPF (None Seen); CRYSTALS None Seen /LPF (None Seen); URINE RBC 1-2 Rare /HPF (NONE SEEN)
[2021-04-11 23:06] LABS: GLYCOHEMOGLOBIN (HGB A1C) 7.3 % (4.8-5.6)
== END ==
LOC: PAC 08:21
PROVIDERS: ATTEND Orthopaedic Surgery
DX: M17.11 Unilateral primary osteoarthritis, right knee (principal)

== ENCOUNTER 2021-04-17 12:29 | Observation (INO) | payer OTHER ==
[~2021-04-17] VITALS: Ht 172.7 cm; Wt 87.1 kg
[2021-04-17 13:30] VITALS: BP 169/77
[2021-04-17 16:30] VITALS: BP 135/52
--- NOTE | 2021-04-17 17:22 | NUR ---
ASSUMED PT CARE AT 1630 FROM PACU. PT IS ALERT & ORIENTED X4. PT HAS IV SITE ON R AC 20 GAUGE RUNNING D5 1/2 NS @100ML/HR. PT HAS COTY DRESSING FLORA WRAP, BILATERAL FARHAT HOSES KNEE HIGH, POLAR CARE AND SCD. PT IS ACCUCHECK ACHS. PT IS ON 2L NC 02 FOR COMFORT. FINISHED ADMISSION. PT AT THE BEDSIDE. PT ON THE BED EATING DINNER, BED ON THE LOWEST POSITION, SIDE RAILS UP, CALL LIGHT WITHIN REACH. WILL CONTINUE TO MONITOR PT. FOLLOW POC.
[2021-04-17 19:26] VITALS: BP 148/62
--- NOTE | 2021-04-18 02:52 | NUR ---
PT IS A/O X4 AND IS ON BED REST FOLLOWING PROCEDURE UNTIL EVALUATED BY PHYSICAL THERAPY. IS PLEASANT AND COOPERATIVE. VSS. AFEBRILE. HS BS ELEVATED. SCHEDULED INSULIN PROVIDED. HS SNACK PROVIDED. DRSG TO RIGHT KNEE IS C/D/I. POLAR PACK, SCD'S, AND TEDHOSE IN PLACE. FALL PRECAUTIONS IN PLACE, CALL LIGHT IS WITHIN REACH.
[2021-04-18 04:39] VITALS: BP 115/45
[2021-04-18 06:34] LABS: ABSOLUTE NEUTROPHILS 13.4 thou/uL (1.4-8.2); HEMATOCRIT 35.6 % (37.0-47.0); HEMOGLOBIN 11.3 gm/dL (12.0-15.0); LYMPHOCYTES 5.1 % (24.0-44.0); MCH 29.4 pg (26.0-34.0); MCHC 31.7 g/dL (28.0-37.0); MCV 92.6 fL (80.0-100.0); MONOCYTES 6.4 % (1.0-8.0); PLATELET COUNT 306 thou/uL (150-400); POLYS 88.5 % (36.0-66.0); RBC 3.85 mil/uL (4.20-5.00); RDW 13.7 % (10.5-14.5); WBC 15.2 thou/uL (4.0-11.0)
[2021-04-18 07:38] VITALS: BP 128/47
[2021-04-18 09:07] LABS: CALCIUM 7.9 mg/dL (8.5-10.1); CREATININE 1.2 mg/dL (0.6-1.0); MAGNESIUM 1.5 mg/dL (1.8-2.4); POTASSIUM 4.8 mmol/L (3.5-5.1)
--- NOTE | 2021-04-18 10:24 | NUR ---
ASSUMED PT CARE THIS AM. PT IS ALERT & ORIENTED X4. PT HAS IV SITE ON RAC RUNNING D5 1/2 NS. PT IS ACCUCHECK ACHS. PT HAS COTY DRESSING, FLORA WRAP, FARHAT HOSES KNEE HIGH BILATERALLY, POLAR CARE AND SCD. PHYSICAL THERAPY WAS WORKING WITH PATIENT THIS AM. GIVEN PAIN MEDICATION PRIOR WORKING WITH PHYSICAL THERAPY THIS AM. PT WAS AT THE BED. WILL CONTINUE TO MONITOR PT. FOLLOW POC.
--- NOTE | 2021-04-18 12:16 | NUR ---
INITIAL ASSESSMENT: SW reviewed chart and spoke with nursing and hospitalist. Pt was admitted from home. Pt is POD#1 right TKA. Pt may discharge home later today. SW notified that pt will need a roller walker for home. SW met with pt at bedside. Introduced role of SW. Pt is alert/orientated x 4. Pt reports she lives at home with her . Prior to admission, pt was independent with ADLs. No hx of services or post-acute placement. Pt's PCP is Dr. Rebeca Zacarias. SW discussed need for roller walker. Pt agreeable. No preference of [employer] company voiced. MARYSE notified [facility] liaison of need for walker, as pt may d/c home later today pending PM therapy session and ortho. Script for walker left on pt's chart. SW is following to assist as needed with discharge planning.
[2021-04-18 15:47] VITALS: BP 104/44
[2021-04-18 21:25] VITALS: BP 140/45
--- NOTE | 2021-04-19 00:56 | NUR ---
ASSESSMENT COMPLETED. R KNEE WITH COTY DRSG, AND POLAR LETICIA WHILE PT IS IN BED. SHE IS ALERT AND ORIENTED X 4.TEDS IN PLACE. SCDS TO LLE. AFEBRILE. DENIES N/V, VOIDING W/O ANY DIFFICULTY.
[2021-04-19 02:30] VITALS: BP 146/40
[2021-04-19 04:54] LABS: HEMATOCRIT 33.3 % (37.0-47.0); HEMOGLOBIN 10.9 gm/dL (12.0-15.0); MCH 30.4 pg (26.0-34.0); MCHC 32.7 g/dL (28.0-37.0); RBC 3.58 mil/uL (4.20-5.00); RDW 13.4 % (10.5-14.5); WBC 10.4 thou/uL (4.0-11.0)
[2021-04-19 07:32] VITALS: BP 110/31
--- NOTE | 2021-04-19 09:43 | NUR ---
PATIENT ALERT AND ORIENTED TO PERSON AND TIME. IN MIDDLE OF NIGHT SHE WAS ORIENTED TO PLACE AND SITUATION BUT NIGHT WORE ON SHE BECAME MORE CONFUSED. WHEN SHE WOULD WAKE UP SHE THOUGHT SHE WAS AT HOME.SHE SLEPT OFF AND ON DURING NIGHT.
--- NOTE | 2021-04-19 10:26 | NUR ---
Assumed care of pt at 0700. Pt a&o but forgetful at times. Dressing c/d/i. FARHAT hose and SCDs in place. Pain controlled with prn pain medications. Pt worked with physical therapy and was cleared to go home from therapy's standpoint. If medically cleared, will be dischared to home. Call light within reach. Family at bedside. Will continue to monitor.
[2021-04-19 12:21] VITALS: BP 110/31
--- NOTE | 2021-04-19 14:14 | NUR ---
DISCHARGE NOTE: SW reviewed chart and spoke with nursing and ortho PA. Pt is medically stable for discharge home today. Roller walker delivered to pt this morning by [facility] liaison. Pt's family to provide transportation home. No additional SW needs identified at this time, but is available to assist should needs arise.
--- NOTE | 2021-04-23 11:04 | O ---
[facility] [place] [address] OPERATIVE REPORT Name: FRANKIE WALLACE Room #: 443-P [facility] Jeremiah Farrell#: [id number] Admission: 04/17/21 Attend Phys: Georges Horowitz MD Discharge: 04/19/21 Date of : 45 Report #: [id number] THIS REPORT FOR: cc: Frankie Zacarias MD,Frankie Horowitz,Georges Rogers MD ~ DATE OF SERVICE: 04/17/2021 PREOPERATIVE DIAGNOSIS: Right knee osteoarthritis. POSTOPERATIVE DIAGNOSIS: Right knee osteoarthritis. PROCEDURE: Right total knee arthroplasty using Navio robotic assistance. SURGEON: Georges Horowitz MD SAFE DEPOSIT BOX RENTAL CLERK: Alysha Stinson PA-C INDICATION FOR SAFE DEPOSIT BOX RENTAL CLERK: Throughout the case, extensive retraction and manipulation of the knee was required. This was afforded to me by my administrative assistant front desk. ANESTHESIA: LMA with adductor canal block. IMPLANTS: A [employer] size 5 Journey II BCS cobalt chrome femur, size 4 tibia, size 9 constrained polyethylene, and size 32 patella. TOURNIQUET TIME: 52 minutes. ESTIMATED BLOOD LOSS: 25 mL. COMPLICATIONS: None. SPECIMENS: None. CONDITION UPON LEAVING THE OR: Stable. INDICATIONS FOR PROCEDURE: The patient is a 76-year-old female with right knee osteoarthritis. She had failed conservative measures for this and after discussion with her, she elected for right total knee arthroplasty. DESCRIPTION OF PROCEDURE: Risks, benefits, alternatives, complications were discussed in detail with the patient including, but not limited to risk of anesthesia; risk of damage to nerves, arteries, blood vessels; risk for infection, bleeding; risk for continued knee pain, need for reoperation. Informed consent was obtained from the patient. Right knee was appropriately marked in the preoperative holding area. IV Ancef was given for preoperative [address] [address] OPERATIVE REPORT Name: FRANKIE WALLACE Room #: 443-P KARISHMA Farrell#: [id number] Admission: 04/17/21 Attend Phys: Georges Horowitz MD Discharge: 04/19/21 Date of : 45 Report #: [id number] antibiotics. Adductor canal block was placed by anesthesia. She was brought to the operating room and placed in supine position on the operating table. LMA anesthesia was induced without complication. Tourniquet was placed on the right thigh. Right lower extremity was prepped and draped in normal sterile fashion. Timeout was performed, properly identifying the patient, procedure, as well as the instrumentation and implants. All in the operating room in agreement. Right lower extremity was exsanguinated, tourniquet was inflated. Tourniquet time was 52 minutes. Standard midline approach to knee was made with 10 blade through the skin. Dissection was taken down sharply to the fascia and deep flaps were developed medially and laterally. Fresh 10 blade was used to make a medial parapatellar arthrotomy and the knee was inspected. There was severe lateral compartment osteoarthritis with moderate medial and patellofemoral compartment osteoarthritis. ACL and PCL were removed sharply. Reference pins were placed in the femur and the tibia. The knee was digitally mapped using the [employer] robotic system. Intraoperative plan was made. We sized the size 5 femur, size 4 tibia, and a 10 spacer. After acceptance of the intraoperative plan, the distal femoral cut was made with Navio bur. Distal femoral cutting block was pinned in place and chamfer cuts were made. Attention was turned to the tibia. Remainder of the menisci removed with Bovie cautery. Tibial resection guide was pinned in place using Navio for placement and tibial resection was made. Flexion and extension gaps were checked and found to be tight laterally in extension. A limited lateral release was performed using the pie crust technique and this balanced the knee. The tibia was then sized, found to be a size 4. Size 4 tibial trial was placed, pinned, and punched. A size 5 femoral trial was placed, box cut was made. This was then trialed with a size 9 polyethylene. The size 9 polyethylene demonstrated the knee. She did have up to 3 mm medially. It was felt we could make up for this with a constrained implant; 9 mm of bone was resected from the posterior surface of the patella and a size 32 patellar trial button was placed. Knee was taken through range of motion, found to be stable, found to have good patellar tracking. Trial components were removed. Bone ends were thoroughly irrigated with normal saline. A final size 4 tibia, size 5 Journey II BCS cobalt chrome femur, and a size 32 patella were cemented in place using standard cementation techniques. While the cement cured, a periarticular injection consisting of morphine, ropivacaine, epinephrine, Toradol was placed around the knee joint capsule. After the cement cured, tourniquet was deflated. Hemostasis was obtained with Bovie cautery. A final size 9 constrained polyethylene was placed. A gram of vancomycin was placed deep in the joint. Fascia was closed with 0 Vicryl. Skin was closed with 2-0 Vicryl. Skin staple and a COTY dressing was applied. The patient tolerated this procedure well and went to recovery room under care of anesthesia postoperatively. <ELECTRONICALLY SIGNED> By: Georges Horowitz MD 04/23/21 1104 1530 1829 Georges Horowitz MD /nt
== END 2021-04-19 13:10 | disposition home or self-care (01) ==
LOC: OR → TBA 12:29 → OR 12:29 → 4S 15:56 → OR 15:57 → 4S 15:57
PROVIDERS: Hospitalist; Nurse Practitioner; ADMIT Orthopaedic Surgery; ATTEND Orthopaedic Surgery
DX: M17.11 Unilateral primary osteoarthritis, right knee (principal); I10 Essential (primary) hypertension; Z20.822 Contact with and (suspected) exposure to COVID-19; E11.9 Type 2 diabetes mellitus without complications; E78.5 Hyperlipidemia, unspecified; F41.9 Anxiety disorder, unspecified; F32.9 Major depressive disorder, single episode, unspecified; K58.9 Irritable bowel syndrome, unspecified; K21.9 Gastro-esophageal reflux disease without esophagitis; Z79.4 Long term (current) use of insulin; Z79.899 Other long term (current) drug therapy
CPT/HCPCS: 27447; S2900; 50010; 50101; 50415; 50954; 51130; 51320; 51412; 52001; 52282; 53000; 53078; 56527; 56528; 57095; 57103; 57110; 57127; 57179; 58239; 62110; 62900; 64039; 70005

== ENCOUNTER 2021-04-30 14:41 | Emergency (ER) | payer OTHER ==
[~2021-04-30] VITALS: Ht 175.3 cm; Wt 87.1 kg
[2021-04-30 15:10] LABS: ABSOLUTE NEUTROPHILS 12.4 thou/uL (1.4-8.2); BASOPHILS 0.6 % (0.0-2.0); EOSINOPHILS 1.4 % (0.0-3.0); HEMATOCRIT 28.7 % (37.0-47.0); HEMOGLOBIN 9.6 gm/dL (12.0-15.0); LYMPHOCYTES 8.8 % (24.0-44.0); MCHC 33.5 g/dL (28.0-37.0); MCV 92.5 fL (80.0-100.0); MONOCYTES 6.5 % (1.0-8.0); PLATELET COUNT 618 thou/uL (150-400); POLYS 82.7 % (36.0-66.0); RDW 13.3 % (10.5-14.5)
[2021-04-30 15:20] LABS: CALCIUM 8.5 mg/dL (8.5-10.1); POTASSIUM 3.6 mmol/L (3.5-5.1)
[2021-04-30 15:30] LABS: ALBUMIN 2.7 g/dL (3.4-5.0); TOTAL BILIRUBIN 0.3 mg/dL (0.2-1.0); TOTAL PROTEIN 7.3 g/dL (6.4-8.2)
[2021-04-30 17:12] LABS: URINE BILIRUBIN NEGATIVE (Negative); URINE BLOOD NEGATIVE (Negative); URINE CLARITY CLEAR; URINE COLOR YELLOW; URINE GLUCOSE-RANDOM* NEGATIVE (Negative); URINE KETONES TRACE (Negative); URINE LEUKOCYTES-REFLEX TRACE (Negative); URINE NITRITE-REFLEX NEGATIVE (Negative); URINE PROTEIN (DIPSTICK) NEGATIVE (Negative); URINE SPECIFIC GRAVITY >= 1.030 (1.005-1.035); URINE UROBILINOGEN 0.2 E.U./dl (0.2-1.0)
[2021-04-30] MEDS ORDERED: FLEXERIL PO (19:45)
[2021-04-30 20:30] VITALS: BP 145/59
--- NOTE | 2021-05-01 06:49 | EKG ---
[place] [address] [place] [address] ELECTROCARDIOGRAM REPORT Name: FRANKIE WALLACE [id number] Admission: 04/30/21 Attend Phys: Discharge: 04/30/21 Date of : 45 Report #: [id number] [facility] ED Test Date: 2021-04-30 Test Time: 15:09:21 Pat Name: FRANKIE WALLACE Department: Room: Gender: F Bell Captain: lana : 1945 Requested By: Galen Grijalva Order Number: [id number] MD: Ervin Jacobo Measurements Intervals [place] Rate: 80 P: 11 MD: 194 QRS: -18 QRSD: 139 T: 116 QT: 430 QTc: 497 Interpretive Statements Sinus rhythm Left bundle branch block Baseline wander in lead(s) V1 Compared to ECG 02/27/2017 12:39:12 Left bundle-branch block now present Left ventricular hypertrophy no longer present Early repolarization no longer present Q waves no longer present Electronically Signed On 05-01-2021 6:49:36 CDT by Ervin Jacobo [email or web address] <ELECTRONICALLY SIGNED> By: Ervin Jacobo MD, FAC 05/01/21 0649 1509 1509 Ervin Jacobo MD, [facility] /EPI
== END 2021-04-30 20:30 | disposition home or self-care (01) ==
LOC: ER 14:41
PROVIDERS: Emergency Medicine
DX: M54.50 Low back pain, unspecified (principal); M25.561 Pain in right knee; I10 Essential (primary) hypertension; E11.9 Type 2 diabetes mellitus without complications; I25.2 Old myocardial infarction; E78.00 Pure hypercholesterolemia, unspecified; F41.9 Anxiety disorder, unspecified; F32.9 Major depressive disorder, single episode, unspecified; K21.9 Gastro-esophageal reflux disease without esophagitis; Z98.890 Other specified postprocedural states; Z90.710 Acquired absence of both cervix and uterus; Z90.49 Acquired absence of other specified parts of digestive tract; Z79.4 Long term (current) use of insulin; Z79.899 Other long term (current) drug therapy; Z79.891 Long term (current) use of opiate analgesic; Z88.5 Allergy status to narcotic agent; Z91.040 Latex allergy status

== ENCOUNTER → 2021-05-03 | Outpatient (CLI) | payer OTHER ==
[~2021-05-03] MED LIST changes: +FLEXERIL PO
[2021-05-03 11:24] LABS: CREATININE 0.9 mg/dL (0.6-1.0)
== END ==
LOC: ULTRA 07:52
PROVIDERS: ATTEND Family Medicine
DX: K76.0 Fatty (change of) liver, not elsewhere classified (principal); I25.10 Atherosclerotic heart disease of native coronary artery without angina pectoris; M79.662 Pain in left lower leg; R06.02 Shortness of breath

== ENCOUNTER 2021-05-15 11:14 | Inpatient (IN) | payer OTHER ==
[~2021-05-15] VITALS: Ht 175.3 cm; Wt 84.8 kg
--- NOTE | ~2021-05-15 | EMS ---
[address] [address] EMS Patient Care Report Name: FRANKIE WALLACE Room #: PRE M.R.#: [id number] Admission: Attend Phys: Discharge: Date of : 45 Report #: [id number] THIS REPORT FOR: //name// Report Transmitted: 05/15/2021 10:41 EMS Care Summary [facility] MED-ACT Incident [id number] @ 05/15/2021 10:32 Incident Location [address] [place] [address] Patient FRANKIE WALLACE Female, 76 Years 1945 Patient Address [address] [place] [address] Patient History Cardiac Arrythmia,Diabetes,Hypertension (HTN),Hyperlipidemia,TIA, Patient Allergies Morphine, Patient Medications Tylenol, Metformin, Hydrocodone, Chief Complaint My heart is fluttering Disposition Transported No Lights/[place] Dispatch Reason Chest Pain (Non-Traumatic) Transported To [facility] Narrative Arrived on scene and found one elderly female laying reclined in a chair with family on scene. Pt states 30 minutes ago she was walking down the stairs when she felt her heart fluttering, and felt dizzy and light headed. Pt states she has a history of left bundle branch block, and has a regular scheduled [facility] [address] [place] [address] EMS Patient Care Report Name: FRANKIE WALLACE Room #: PRE Bud#: [id number] Admission: Attend Phys: Discharge: Date of : 45 Report #: [id number] appointment tomorrow with her supervisor telephone clerks. Pt denies any chest pain, SOB, N/V/D or other COVID symptoms. Pt states she is diabetic and had low blood glucose this morning, but after eating her blood glucose was normal. Pt states she had right knee surgery 4 weeks ago, and is in physical therapy. Obtained 12 lead. Assisted pt in standing and sitting down onto stair chair. Moved pt outside to cot, and assisted pt in standing and sitting down onto cot. Moved pt to medic unit, obtained IV access and transported. No further changes were found. Arrived at destination and into room 12, transferred pt with nursing staff assistance, and transferred care to RN. M1135 clear. Initial Vitals @10:58Glucose: 136, @10:43P: 85,SpO2: 99,NC Suspected: false @10:54P: 85,R: 18,BP: 155/71,SpO2: 100, @10:41P: 87,R: 18,BP: 156/72,Pain: 0/10,GCS: 15,Temp: 97.3F,SpO2: 97,Revised Trauma: 12, Impression Palpitations Procedures @10:55 IV Therapy - Saline Lock 10cc (20 ga) Site: Antecubital-Right Response: UnchangedSucceeded @10:43 12-Lead ECG Response: UnchangedSucceeded @10:43 ALS Assessment Response: UnchangedSucceeded @10:50 Surgical Mask on Patient Response: Unchanged Timeline 10:30,Call Received 10:30,Psap Call 10:32,Dispatched 10:32,En Route 10:39,On Scene 10:40,At Patient 10:41,BP: 156/72 M,PULSE: 87,RR: 18 R,SPO2: 97 Ox,ETCO2: ,BG: ,PAIN: 0,GCS: 15, 10:43,ALS Assessment,Response: UnchangedSucceeded, 10:43,12-Lead ECG,Response: UnchangedSucceeded, 10:43,BP: / M,PULSE: 85,RR: R,SPO2: 99 Ox,ETCO2: ,BG: ,PAIN: ,GCS: , 10:50,Surgical Mask on Patient,Response: Unchanged 10:54,BP: 155/71 M,PULSE: 85,RR: 18 R,SPO2: 100 Ox,ETCO2: ,BG: ,PAIN: ,GCS: , 10:55,IV Therapy - Saline Lock 10cc 20 ga Site: Antecubital-Right,Response: UnchangedSucceeded, 10:58,BP: / M,PULSE: ,RR: R,SPO2: Ox,ETCO2: ,B,PAIN: ,GCS: , 10:59,Depart Scene [facility] [address] [place] [address] EMS Patient Care Report Name: FRANKIE WALLACE Room #: PRE M.R.#: [id number] Admission: Attend Phys: Discharge: Date of : 45 Report #: [id number] 11:07,At Destination 11:25,Call Closed Disclaimer v1.1 Copyright 2020 [employer] This EMS Care Summary contains data elements from the applicable legal record (which may be displayed differently). It is designed to provide pertinent information for the following purposes: continuity of care, clinical quality, and state data reporting. The complete legal record is available to ED staff and administrators of the receiving hospital in [employer]'s Patient Tracker. All data is provided "as is."
[2021-05-15 11:14] VITALS: BP 156/70
[2021-05-15 11:39] LABS: ABSOLUTE NEUTROPHILS 5.6 thou/uL (1.4-8.2); BASOPHILS 1.3 % (0.0-2.0); EOSINOPHILS 3.5 % (0.0-3.0); HEMATOCRIT 31.5 % (37.0-47.0); HEMOGLOBIN 10.2 gm/dL (12.0-15.0); LYMPHOCYTES 20.3 % (24.0-44.0); MCH 29.4 pg (26.0-34.0); MCHC 32.4 g/dL (28.0-37.0); MCV 90.5 fL (80.0-100.0); MONOCYTES 9.5 % (1.0-8.0); PLATELET COUNT 532 thou/uL (150-400); POLYS 65.4 % (36.0-66.0); RBC 3.48 mil/uL (4.20-5.00); RDW 13.6 % (10.5-14.5); WBC 8.6 thou/uL (4.0-11.0)
[2021-05-15 11:47] LABS: CALCIUM 8.2 mg/dL (8.5-10.1); CREATININE 0.9 mg/dL (0.6-1.0); POTASSIUM 3.4 mmol/L (3.5-5.1)
--- NOTE | 2021-05-15 11:56 | EKG ---
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
[2021-05-15 11:58] LABS: ALBUMIN 2.7 g/dL (3.4-5.0); TOTAL BILIRUBIN 0.2 mg/dL (0.2-1.0); TOTAL PROTEIN 7.2 g/dL (6.4-8.2)
--- NOTE | 2021-05-15 14:06 | NUR ---
[facility]
[2021-05-15 19:12] VITALS: BP 142/56
[2021-05-15 20:28] VITALS: BP 137/45
[2021-05-15 21:34] VITALS: BP 156/73
--- NOTE | 2021-05-16 05:05 | NUR ---
RECEIVED CARE OF THIS PATIENT AT 2119 VIA CART FROM ED ACCOMAPNIED BY ED KEON. PATIENT ALERT AND ORITNTED X4. UP TO BATHROOM WITH SBA ONLY SEVERAL TIMES. HAS HEADACHE AND SAYS IT FEELS LIKE SHE HAS HAD TOO MUCH LASIX. CALLED TO GET SOMETHING FOR HEADACHE AND FOR ANXIETY. HAS NOT SLEPT ANY THIS SHIFT.
[2021-05-16 05:21] LABS: HEMATOCRIT 30.6 % (37.0-47.0); HEMOGLOBIN 9.8 gm/dL (12.0-15.0); MCH 29.1 pg (26.0-34.0); MCHC 32.2 g/dL (28.0-37.0); MCV 90.5 fL (80.0-100.0); RBC 3.38 mil/uL (4.20-5.00); WBC 7.5 thou/uL (4.0-11.0)
[2021-05-16 05:31] LABS: CREATININE 0.8 mg/dL (0.6-1.0); POTASSIUM 3.3 mmol/L (3.5-5.1)
--- NOTE | 2021-05-16 07:03 | EKG ---
[place] [address] [address] [facility] [place] [address] ELECTROCARDIOGRAM REPORT Name: FRANKIE WALLACE Room #: 437-P ADM IN M.R.#: [id number] Admission: 05/15/21 Attend Phys: Robert Dupree MD Discharge: Date of : 45 Report #: [id number] [facility] ED Test Date: 2021-05-15 Test Time: 12:43:18 Pat Name: FRANKIE WALLACE Department: Room: 437 Gender: F Rn Nursery: : 1945 Requested By: Galen Grijalva Order Number: [id number] MD: Ervin Jacobo Measurements Intervals [place] Rate: 91 P: [place]: QRS: -22 QRSD: 139 T: 144 QT: 416 QTc: 512 Interpretive Statements Atrial flutter/fibrillation Left bundle branch block Compared to ECG 05/15/2021 11:45:50 No significant changes Electronically Signed On 05-16-2021 7:02:59 CDT by Ervin Jacobo [email or web address] <ELECTRONICALLY SIGNED> By: Ervin Jacobo MD, [facility] 05/16/21 0702 1243 1243 Ervin Jacobo MD, FACC /EPI
[2021-05-16 07:55] LABS: % SATURATION 11 % (20-39); IRON 26 ug/dL (50-170); TIBC 240 ug/dL (250-450)
[2021-05-16 07:57] VITALS: BP 149/60
--- NOTE | 2021-05-16 09:09 | NUR ---
Assumed care of pt at 0700. Pt a&ox4. Denies pain. IVF infusing. Pt states she stills feels jittery. Call light within reach. Will continue to monitor.
[2021-05-16 12:00] VITALS: BP 155/68
--- NOTE | 2021-05-16 14:39 | NUR ---
Chart reviewed and case discussed with the care team. Pt known to cm from recent dc home with outpt therapy on 04/19/21 s/p rt tkr. She was issued a rwalker per provider plus. The pt was readmitted with dizziness. She has been seen by therapy and has been advancing her mobility with no assistive device. Outpt therapy anticipated. No cm interventions indicated. Will remain available should dc needs arise.
[2021-05-16 15:20] VITALS: BP 141/67
--- NOTE | 2021-05-16 15:40 | 2DMMODE ---
[address] [address] 2 D/M-MODE ECHOCARDIOGRAM Name: FRANKIE WALLACE Room #: 437-P ADM IN M.R.#: [id number] Admission: 05/15/21 Attend Phys: Robert Dupree MD Discharge: Date of : 45 Report #: [id number] THIS REPORT FOR: cc: Frankie Zacarias MD,Frankie Garza,Dominic Rogers MD [facility] ~ APPROVED REPORT Study performed: 05/16/2021 14:37:12 EXAM: Comprehensive 2D, Doppler, and color-flow Echocardiogram Patient Location: Bedside Room #: 437 Status: routine BSA: 2.01 HR: 76 bpm BP: 155/68 mmHg Other Information Study Quality: Adequate Indications Diabetes CAD Palpitations Hypertension/HDD 2D Dimensions IVC: 15.00 mm Volumes Left Atrial Volume (Systole) Single Plane 4CH: 59.01 mL Single Plane 2CH: 41.90 mL LA ESV Index: 26.00 mL/m2 Aortic Valve AoV Peak Caesar.: 1.48 m/s AO Peak Gr.: 8.71 mmHg LVOT Max P.52 mmHg LVOT Max V: 0.79 m/s Tricuspid Valve TR Peak Caesar.: 2.85 m/s TR Peak Gr.: 32.[address] [address] 2 D/M-MODE ECHOCARDIOGRAM Name: FRANKIE WALLACE Room #: 437-P ADM IN M.R.#: [id number] Admission: 05/15/21 Attend Phys: Robert Dupree MD Discharge: Date of : 45 Report #: [id number] PA Pressure: 38.00 mmHg Left Ventricle The left ventricle is normal size. There is normal left ventricular wall thickness. Left ventricular systolic function is borderline. LVEF is 50%. This study is not technically sufficient to allow evaluation of the LV diastolic function. Right Ventricle The right ventricle is normal size. The right ventricular systolic function is normal. Atria The left atrium size is normal. The right atrium size is normal. Aortic Valve The aortic valve is normal in structure. The Aortic valve is sclerotic. Trace aortic regurgitation. There is no aortic valvular stenosis. Mitral Valve The mitral valve is normal in structure. Mild mitral regurgitation. No evidence of mitral valve stenosis. Tricuspid Valve The tricuspid valve is normal in structure. There is trace tricuspid regurgitation. Estimated PAP 38 mmHg. There is mild pulmonary hypertension. Pulmonic Valve The pulmonary valve is normal in structure. There is no pulmonic valvular regurgitation. Great Vessels The aortic root is normal in size. IVC is normal in size and collapses >50% with inspiration. Pericardium There is no pericardial effusion. <Conclusion> The left ventricle is normal size. LVEF is 50%. This study is not technically sufficient to allow evaluation of the LV diastolic function. [facility] [place] [address] 2 D/M-MODE ECHOCARDIOGRAM Name: FRANKIE WALLACE Room #: 437-P ADM IN M.R.#: [id number] Admission: 05/15/21 Attend Phys: Robert Dupree MD Discharge: Date of : 45 Report #: [id number] The right ventricle is normal size. The left atrium size is normal. The aortic valve is normal in structure. The Aortic valve is sclerotic. Trace aortic regurgitation. Mild mitral regurgitation. There is trace tricuspid regurgitation. Estimated PAP 38 mmHg. There is mild pulmonary hypertension. The aortic root is normal in size. There is no pericardial effusion. <ELECTRONICALLY SIGNED> By: Dominic Garza MD, FACC 05/16/211538 38 38 Dominic Garza MD, FACC /INF
[2021-05-16 20:43] VITALS: BP 155/79
--- NOTE | 2021-05-17 03:48 | NUR ---
ASSUMED CARE OF PT AT 1900. BEDSIDE REPORT RECIEVED. [place] ASSESSMENT COMPLETE. MEDS GIVEN ORDERED. BLOOD SUGAR CHECKED, 245, 4 UNITS OF NOVOLOG GIVEN PER SLIDING SCALE, SECOND NURSE VERIFICATION DONE. PT UP AD FREDDY. TELE LEADS REPLACED. ICE PACK PROVIDED FOR KNEE. DENEIS ANY OTHER NEEDS AT THIS TIME. CALL [facility] INREACH. HOURLY ROUNDING CONTINUING.
--- NOTE | 2021-05-17 05:50 | NUR ---
I CONCUR WITH THE NOTE AND ASSESSMENT BY Eron MORA LPN
[2021-05-17 06:14] LABS: HEMATOCRIT 29.1 % (37.0-47.0); HEMOGLOBIN 9.6 gm/dL (12.0-15.0); MCH 29.6 pg (26.0-34.0); MCHC 32.9 g/dL (28.0-37.0); MCV 90.1 fL (80.0-100.0); RBC 3.23 mil/uL (4.20-5.00); RDW 13.4 % (10.5-14.5); WBC 6.9 thou/uL (4.0-11.0)
[2021-05-17 06:40] LABS: CALCIUM 7.9 mg/dL (8.5-10.1); CREATININE 0.8 mg/dL (0.6-1.0)
[2021-05-17 08:22] VITALS: BP 138/58
--- NOTE | 2021-05-17 10:31 | NUR ---
Assumed care of pt at 0700. Pt a&ox4. Pt NPO this am. Knee aspiration done yesterday 05/16. Provider was called to ask about ot's diet. Stated waiting on labs from knee aspiration before advancing diet. Lab was called and stated results will be available today. Denies pain. Up ad marlen. Will continue to monitor.
--- NOTE | 2021-05-17 10:57 | NUR ---
DISCHARGE NOTE: MARYSE reviewed chart and spoke with nursing and attending physician. Pt is medically stable for discharge home today. SW met with pt at bedside to discuss discharge plan. Pt states she is currently doing outpatient PT and will resume her regular schedule. No discharge needs identified at this time. Pt's family will provide transportation home. SW is available to assist should needs arise.
[2021-05-17 11:32] LABS: SOURCE SYNOVIAL
[2021-05-17 12:26] VITALS: BP 136/64
[2021-05-17 12:59] VITALS: BP 136/64
== END 2021-05-17 13:56 | disposition home or self-care (01) | DRG 564 ==
LOC: ER 11:14 → 4S 14:00 → EROBS 14:00 → 4S 21:31
PROVIDERS: Emergency Medicine; Nurse Practitioner Adult Health; Physician Assistant; ADMIT Hospitalist; ATTEND Hospitalist
PROC: 0S9C3ZZ Drainage of Right Knee Joint, Percutaneous Approach (ICD-10-PCS; principal; 2021-05-16)
DX: M25.461 Effusion, right knee (principal); E43 Unspecified severe protein-calorie malnutrition; D62 Acute posthemorrhagic anemia; E87.6 Hypokalemia; I10 Essential (primary) hypertension; Z96.653 Presence of artificial knee joint, bilateral; E78.00 Pure hypercholesterolemia, unspecified; K21.9 Gastro-esophageal reflux disease without esophagitis; F32.9 Major depressive disorder, single episode, unspecified; F41.9 Anxiety disorder, unspecified; E11.51 Type 2 diabetes mellitus with diabetic peripheral angiopathy without gangrene; I44.7 Left bundle-branch block, unspecified; E88.09 Other disorders of plasma-protein metabolism, not elsewhere classified; R00.0 Tachycardia, unspecified; M19.90 Unspecified osteoarthritis, unspecified site; I70.0 Atherosclerosis of aorta; I08.3 Combined rheumatic disorders of mitral, aortic and tricuspid valves; Z79.4 Long term (current) use of insulin; Z90.710 Acquired absence of both cervix and uterus; Z90.49 Acquired absence of other specified parts of digestive tract; Z95.5 Presence of coronary angioplasty implant and graft; I25.2 Old myocardial infarction; Z98.42 Cataract extraction status, left eye; Z98.41 Cataract extraction status, right eye; Z86.73 Personal history of transient ischemic attack (TIA), and cerebral infarction without residual deficits; Z88.6 Allergy status to analgesic agent; Z91.040 Latex allergy status; Z83.6 Family history of other diseases of the respiratory system
CPT/HCPCS: 10100